=== PATIENT | male | born 1950 | race Caucasian/White ===

== ENCOUNTER 2019-07-16 07:48 | Day surgery (SDC) | payer MEDICARE, BC ==
[2019-07-16] MEDS ORDERED: LACTATED RINGERS 1,000 ML IV ONE (08:01)
[2019-07-16 10:01] VITALS: BP 104/68
== END 2019-07-16 07:49 | disposition home or self-care (01) ==
LOC: SDS 07:48
PROVIDERS: ATTEND Internal Medicine Gastroenterology
PROC: 0DBL8ZZ Excision of Transverse Colon, Via Natural or Artificial Opening Endoscopic (ICD-10-PCS; principal; 2019-07-16 09:15)
DX: Z12.11 Encounter for screening for malignant neoplasm of colon (principal); K63.89 Other specified diseases of intestine
CPT/HCPCS: 45380; J7120

== ENCOUNTER 2020-03-22 09:33 | Emergency (ER) | payer MEDICARE, BC ==
[2020-03-22] MEDS ORDERED: ACYCLOVIR 200 MG CAPSULE PO STA (09:56)
[2020-03-22] MEDS ORDERED: CHERRY SYRUP 10 ML UDC PO ONE (09:56)
[2020-03-22] MEDS ORDERED: DEXAMETHASONE 10 MG/ML VIAL PO STA (09:56)
--- NOTE | 2020-03-22 09:59 | ED Physician Documentation ---
PD HPI BACK PAIN - Stated complaint Stated Complaint: L SIDE PX - Chief complaint Chief Complaint: Abd Pain - History obtained from History obtained from: Patient - History of Present Illness Timing - onset: How many days ago (4) Timing - duration: Days (4) Timing - details: Gradual onset (Onset of left thoracolumbar pain 4 days ago without any noted injury. He has not noticed to wrap around to the side of his chest. He describes skin sensitivity. Today noted some red rash starting on his back.) Location: Mid, Lower, Left Quality: Pain, Aching Associated symptoms: No: Fever, Weakness, Numbness Improves with: No: Rest Worsened by: Movement, Palpation Contributing factors: No: Lifting, Twisting, Trauma Similar symptoms before: Has not had sx before Review of Systems Constitutional: denies: Fever, Chills Nose: denies: Rhinorrhea / runny nose, Congestion Throat: denies: Sore throat Respiratory: denies: Cough GI: denies: Abdominal Pain, Nausea, Vomiting : denies: Dysuria, Frequency, Hematuria Skin: reports: Rash (started today in the area that is hurting on back) Neurologic: denies: Focal weakness, Numbness PD PAST MEDICAL HISTORY - Past Medical History Past Medical History: Yes Cardiovascular: High cholesterol Respiratory: None Endocrine/Autoimmune: None GI: None : None HEENT: None Psych: None Musculoskeletal: None Derm: None - Past Surgical History Past Surgical History: Yes General: Other - Present Medications Home Medications: Ambulatory Orders Medication Instructions Recorded Confirmed Atorvastatin Calcium 40 mg PO DAILY 07/16/19 07/16/19 Amitriptyline [Elavil] 25 mg PO HS #20 tablet 03/22/20 Hydrocodone/Acetaminophen 1 each PO Q6H PRN #15 tablet 03/22/20 [Hydrocodone-Acetamin 5-325 mg] Valacyclovir HCl [Valacyclovir] 1,000 mg PO TID #20 tablet 03/22/20 dexAMETHasone [Decadron] 4 mg PO DAILY #7 tablet 03/22/20 - Allergies Allergies/Adverse Reactions: Allergies Allergy/AdvReac Type Severity Reaction Status Date / Time Penicillins AdvReac Rash Verified 07/13/19 13:54 - Social History Does the pt smoke?: No Smoking Status: Never smoker Does the pt drink ETOH?: Yes Does the pt have substance abuse?: No - Immunizations Immunizations are current?: Yes PD ED PE NORMAL - Vitals Vital signs reviewed: Yes - General General: Alert and oriented X 3, No acute distress, Well developed/nourished - Back Back: No spinal TTP (He is tender lateral to the spine in a bandlike distribution at the lower thoracic area. There is also a mild patch of speckled red rash without vesicles yet. It is sensitive along this area but not above or below and wraps around to the anterior abdomen on the left. No tenderness on the right.) - Derm Derm: Normal color, Warm and dry Results - Vitals Vitals: Vital Signs - 24 hr 03/22/20 03/22/20 09:37 10:12 Temperature 36.7 C 36.6 C Heart Rate 62 64 Respiratory 18 18 Rate Blood Pressure 138/105 H 152/98 H O2 Saturation 100 100 Oxygen O2 Source Room air PD MEDICAL DECISION MAKING - ED course Complexity details: considered differential (His symptoms and exam are very consistent with shingles outbreak on the back.), d/w patient Departure - Departure Disposition: 01 Home, Self Care Clinical Impression: Shingles rash Qualifiers: Herpes zoster complications: without complications Qualified Code(s): B02.9 - Zoster without complications Condition: Stable Record reviewed to determine appropriate education?: Yes Instructions: ED Shingles Prescriptions: dexAMETHasone [Decadron] 4 mg PO DAILY #7 tablet Amitriptyline [Elavil] 25 mg PO HS #20 tablet Hydrocodone/Acetaminophen [Hydrocodone-Acetamin 5-325 mg] 1 each PO Q6H PRN #15 tablet PRN Reason: Pain Valacyclovir HCl [Valacyclovir] 1,000 mg PO TID #20 tablet Comments: This looks and sounds like a shingles outbreak. This may likely get slightly worse before he gets better even with the treatment. The several treatments are intended to decrease the magnitude and duration of the shingles outbreak but usually does not stop it immediately. Jaqueline acyclovir or antiviral 3 times daily for a week to decrease the viral load. Decadron steroid daily for a week to decrease inflammation of the nerve. Amitriptyline nightly for a couple of weeks to decrease nerve irritation and therefore less pain and sensitivity. For the pain itself use Tylenol or ibuprofen or naproxen. Add hydrocodone if needed for worse pain. Discharge Date/Time: 03/22/20 10:12
[2020-03-22 10:13] VITALS: BP 152/98
== END 2020-03-22 10:12 | disposition home or self-care (01) ==
LOC: ED 09:33
DX: B02.9 Zoster without complications (principal)
CPT/HCPCS: 99283; A9270

== ENCOUNTER 2021-09-05 12:11 | Emergency (ER) | payer MEDICARE, OTHER ==
[2021-09-05 12:19] VITALS: BP 153/65
[2021-09-05] MEDS ORDERED: NIRMATRELVIR/RITONAVIR PREPACK PO STA (12:35)
--- NOTE | 2021-09-05 12:39 | ED Physician Documentation ---
History of Present Illness - Stated complaint Stated Complaint: BODYACHES,HEADACHE,FEVER, C+ - Chief complaint Chief Complaint: General - History obtained from History obtained from: Patient - Additonal information Additional information: 70-year-old gentleman, otherwise healthy with no meds and no history of kidney problems. I saw his a few nights ago and she had COVID. He is unvaccinated and got sick this morning with body aches and a scratchy throat. Took a home test for COVID and it was positive. Requesting paxlovid as his was prescribed. Review of Systems Constitutional: reports: Chills, Myalgias, Fatigue Nose: reports: Rhinorrhea / runny nose Throat: reports: Sore throat Respiratory: denies: Dyspnea, Cough PD PAST MEDICAL HISTORY - Past Medical History Cardiovascular: High cholesterol Respiratory: None Endocrine/Autoimmune: None GI: None : None HEENT: None Psych: None Musculoskeletal: None Derm: None - Past Surgical History Past Surgical History: Yes General: Other - Present Medications Home Medications: Ambulatory Orders Medication Instructions Recorded Confirmed Atorvastatin Calcium 40 mg PO DAILY 07/16/19 07/16/19 Amitriptyline [Elavil] 25 mg PO HS #20 tablet 03/22/20 Hydrocodone/Acetaminophen 1 each PO Q6H PRN #15 tablet 03/22/20 [Hydrocodone-Acetamin 5-325 mg] Valacyclovir HCl [Valacyclovir] 1,000 mg PO TID #20 tablet 03/22/20 dexAMETHasone [Decadron] 4 mg PO DAILY #7 tablet 03/22/20 - Allergies Allergies/Adverse Reactions: Allergies Allergy/AdvReac Type Severity Reaction Status Date / Time Penicillins AdvReac Rash Verified 09/05/21 12:15 - Social History Does the pt smoke?: No Smoking Status: Never smoker Does the pt drink ETOH?: Yes Does the pt have substance abuse?: No - Immunizations Immunizations are current?: Yes PD ED PE NORMAL - Vitals Vital signs reviewed: Yes - General General: Alert and oriented X 3, No acute distress - Derm Derm: Normal color, Warm and dry - Neuro Neuro: Alert and oriented X 3, Normal speech - Psych Psych: Normal mood, Normal affect Results - Vitals Vitals: Vital Signs - 24 hr 09/05/21 12:15 Temperature 37.2 C Heart Rate 68 Respiratory 16 Rate Blood Pressure 153/65 H O2 Saturation 98 Oxygen O2 Source Room air Departure - Departure Disposition: 01 Home, Self Care Clinical Impression: COVID-19 Condition: Good Record reviewed to determine appropriate education?: Yes Instructions: ED Viral Syndrome Comments: Return if worsening or if you develop shortness of breath. Otherwise take the antiviral medication per package instructions.
== END 2021-09-05 12:44 | disposition home or self-care (01) ==
LOC: ED 12:11
DX: U07.1 COVID-19 (principal); Z28.310 Unvaccinated for COVID-19
CPT/HCPCS: 99282; J3490

== ENCOUNTER 2022-08-17 17:57 | Outpatient (CLI) | payer MEDICARE, OTHER | END 2022-08-17 23:59 | disposition critical access hospital (66) | LOC: EMS 17:57 | DX: S99.911A Unspecified injury of right ankle, initial encounter (principal); S89.92XA Unspecified injury of left lower leg, initial encounter; Y08.89XA Assault by other specified means, initial encounter; V02.00XA Pedestrian on foot injured in collision with two- or three-wheeled motor vehicle in nontraffic accident, initial encounter; Y93.H3 Activity, building and construction; Y92.008 Other place in unspecified non-institutional (private) residence as the place of occurrence of the external cause | CPT/HCPCS: A0425; A0429 ==

== ENCOUNTER 2022-08-17 18:13 | Emergency (ER) | payer MEDICARE, OTHER ==
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
[2022-08-17 20:24] VITALS: BP 136/66
== END 2022-08-17 20:34 | disposition home or self-care (01) ==
LOC: EDUNIT# → ED 18:13
DX: S93.401A Sprain of unspecified ligament of right ankle, initial encounter (principal); S93.601A Unspecified sprain of right foot, initial encounter; V86.79XA Person on outside of other special all-terrain or other off-road motor vehicles injured in nontraffic accident, initial encounter; E78.00 Pure hypercholesterolemia, unspecified
CPT/HCPCS: 99283; 99284

== ENCOUNTER 2022-08-31 08:12 | Outpatient (CLI) | payer MEDICARE, OTHER ==
[2022-08-31 08:37] LABS: BASOPHILS % (AUTO) 0.7 %; EOSINOPHILS # (AUTO) 0.3 10^3/uL (0.0-0.7); HCT - HEMATOCRIT 49.3 % (42.0-52.0); HGB - HEMOGLOBIN 16.7 g/dL (14.0-18.0); LYMPHOCYTES # (AUTO) 1.2 10^3/uL (1.5-3.5); MEAN CORPUSCULAR HEMOGLOBIN 31.5 pg (27.0-31.0); MEAN CORPUSCULAR HGB CONC 33.9 g/dL (32.0-36.0); MONOCYTES # (AUTO) 0.4 10^3/uL (0.0-1.0); NEUTROPHILS # (AUTO) 4.1 10^3/uL (1.5-6.6); NEUTROPHILS % (AUTO) 67.8 %; PLT - PLATELET COUNT 209 10^3/uL (130-450); RED CELL DISTRIBUTION WIDTH 13.9 % (12.0-15.0)
[2022-08-31 09:05] LABS: ALBUMIN 4.2 g/dL (3.2-5.5); ALBUMIN/GLOBULIN RATIO 1.5 (1.0-2.2); ALKALINE PHOSPHATASE 58 IU/L (42-121); ALT ALANINE AMINOTRANSFERASE 23 IU/L (10-60); AST ASPARTATE AMINOTRANSFERASE 15 IU/L (10-42); BILIRUBIN,TOTAL 0.8 mg/dL (0.2-1.0); BUN - BLOOD UREA NITROGEN 15 mg/dL (6-20); CARBON DIOXIDE - CO2 28 mmol/L (21-32); CHLORIDE 105 mmol/L (101-111); CHOL/HDL RATIO 4.9 (<5.0); CHOLESTEROL 297 mg/dL; CREATININE 0.9 mg/dL (0.6-1.2); GFR - MDRD 83 (>89); GLUCOSE 107 mg/dL (70-100); HDL CHOLESTEROL 61 mg/dL; LDL CHOLESTEROL,CALCULATED 213 mg/dL; LDL/HDL RATIO 3.5 (<3.6); POTASSIUM 4.3 mmol/L (3.5-5.0); SODIUM 140 mmol/L (135-145); TRIGLYCERIDES 114 mg/dL; VLDL CHOLESTEROL 23 mg/dL
--- NOTE | 2022-08-31 09:14 | XRAY Report ---
PROCEDURE: Foot 2 View RT INDICATIONS: FOOT PX, RT TECHNIQUE: 2 views of the foot were acquired. COMPARISON: None. FINDINGS: Bones: No fractures or dislocations. No suspicious bony lesions. Calcaneal enthesophytes. Soft tissues: No suspicious soft tissue calcifications or masses. IMPRESSION: No acute bony abnormality. Reviewed by: Jayro Nguyen on 08/31/2022 9:12 AM PDT Approved by: Jayro Nguyen on 08/31/2022 9:12 AM PDT Station ID: [id number]
--- NOTE | 2022-08-31 10:56 | XRAY Report ---
PROCEDURE: Ankle 3 View RT INDICATIONS: ANKLE PX RT TECHNIQUE: 3 views of the ankle were acquired. COMPARISON: None. FINDINGS: Bones: No fractures or dislocations. Ankle mortise is normally aligned. No suspicious bony lesions . Calcaneal enthesophytes. Soft tissues: No tibiotalar joint effusion. Achilles tendon appears normal. IMPRESSION: No acute bony abnormality. No healing fracture identified. Given persistent pain, ligamentous injury is a possibility. This could be evaluated with MRI if necessary. Reviewed by: Jayro Nguyen on 08/31/2022 10:54 AM PDT Approved by: Jayro Nguyen on 08/31/2022 10:54 AM [facility] Station ID: [id number]
== END 2022-08-31 08:13 | disposition home or self-care (01) ==
LOC: DI 08:12
PROVIDERS: ATTEND Physician Assistant
DX: Z00.00 Encounter for general adult medical examination without abnormal findings (principal); M25.571 Pain in right ankle and joints of right foot; M79.671 Pain in right foot; E78.5 Hyperlipidemia, unspecified; Z12.5 Encounter for screening for malignant neoplasm of prostate
CPT/HCPCS: 36415; 73610; 73620; 80053; 80061; 85025; G0103; 83721; 84153

== ENCOUNTER 2022-10-05 08:03 | Outpatient (CLI) | payer MEDICARE, OTHER ==
--- NOTE | 2022-10-05 16:19 | MRI Report ---
PROCEDURE: KNEE WO - LT INDICATIONS: LEFT KNEE SPRAIN TECHNIQUE: Noncontrast sagittal PD fast spin echo and T2 fast spin echo with fat saturation, sagittal 3-D gradie nt sequence with fat saturation; coronal T1 spin echo and PD fast spin echo with fat saturation, and axial PD fast spin echo with fat saturation through the knee. COMPARISON: None. FINDINGS: Image quality: Excellent. Menisci: Oblique tear involving posterior horn of medial meniscus is seen extending to inferior artic ulating surface. There is no lateral meniscal tear. Low-grade partial-thickness tear involving certified procedural coder ior lateral meniscal root ligament is seen. Cruciate ligaments: The anterior cruciate ligament is attenuated with intrasubstance T2 hyperintense signal. The posterior cruciate ligament is intact. Medial structures: The medial collateral ligament appears mildly thickened. The posterior oblique l igament, semimembranosus tendon insertions, and oblique popliteal ligament, and meniscocapsular junct ion appear intact. Visualized portions of the pes anserinus tendons appear normal. No abnormal burs al fluid. Lateral structures: The lateral collateral ligament, long and short heads of the biceps femoris tend on appear intact. The popliteus tendon appears normal; the popliteofibular ligament appears intact. Iliotibial band appears normal. Anterior structures: Soft tissue edema and swelling along anterior aspect of patella and patella tend on is noted. The quadriceps and patellar tendons appear intact. Patellar alignment is normal. No fe moral trochlear dysplasia or ventral trochlear prominence. No edema in the infrapatellar fat pad. Bones and cartilage: Mild to moderate tricompartmental osteoarthritis and chondromalacia is noted mor e notably in lateral femoral tibial compartment and patellofemoral compartment with small osteochondr al injury involving weightbearing portion of lateral tibial plateau. No fracture or dislocation. Joint space: There is small knee joint fluid. There is a tiny Patel's cyst. Normal appearing synovi al plicae are incidentally noted. IMPRESSION: 1. Oblique tear involving posterior horn of medial meniscus extending to inferior articulating surfac e. No focal lateral meniscal tear. Low-grade partial-thickness tear involving posterior lateral menis leeanna root ligament. 2. Degenerative changes and low to moderate grade intrasubstance partial thickness tear involving ant erior cruciate ligament. No ACL rupture. The PCL is intact. 3. Soft tissue edema and swelling along anterior aspect of patella and patella tendon. Prepatellar bu rsitis cannot be excluded. Distal quadriceps tendon and patella tendon are grossly intact. 4. Low-grade MCL sprain. 5. Mild to moderate tricompartmental osteoarthritis and chondromalacia as above. No fracture or dislo cation. Small joint effusion and a tiny Patel's cyst. No gross loose bodies. Reviewed by: Moe Tinsley MD on 10/05/2022 3:18 PM [facility] Approved by: Moe Tinsley MD on 10/05/2022 3:18 PM [facility] Station ID: [id number]
== END 2022-10-05 08:04 | disposition home or self-care (01) ==
LOC: DI 08:03
PROVIDERS: ATTEND Orthopaedic Surgery Foot and Ankle Surgery
DX: S83.242A Other tear of medial meniscus, current injury, left knee, initial encounter (principal); S83.282A Other tear of lateral meniscus, current injury, left knee, initial encounter; M17.12 Unilateral primary osteoarthritis, left knee; S83.412A Sprain of medial collateral ligament of left knee, initial encounter; S83.512A Sprain of anterior cruciate ligament of left knee, initial encounter; M94.262 Chondromalacia, left knee; M71.22 Synovial cyst of popliteal space [Baker], left knee; M25.462 Effusion, left knee